=== PATIENT | male | born 1990 | race Caucasian/White ===

== ENCOUNTER 2024-03-31 09:16 | Outpatient (CLI) | payer OTHER | END 2024-03-31 09:17 | disposition home or self-care (01) | LOC: SCSMRI 09:16 | PROVIDERS: ATTEND Orthopaedic Surgery | DX: M87.851 Other osteonecrosis, right femur (principal); S73.101A Unspecified sprain of right hip, initial encounter ==

== ENCOUNTER 2024-04-16 11:44 | Outpatient (CLI) | payer OTHER ==
[2024-04-16 13:10] LABS: #Basophils Less than 0.03 10x3/uL (0.0-0.2); %Basophils 0.2 % (0.0-1.0); %Eosinophils 0.6 % (0.0-10.0); %Lymphocytes 31.7 % (21.0-51.0); %Monocytes 8.7 % (0.0-10.0); %Neutrophils 58.6 % (42.0-75.0); Hematocrit 47.6 % (42.0-52.0); Hemoglobin 16.7 g/dL (14.0-18.0); Mean Corpuscular HGB CONC 35.1 g/dL (32.0-36.0); Mean Corpuscular Hemoglobin 30.4 pg (27.0-31.0); Mean Corpuscular Volume 86.7 fL (78.0-98.0); Mean Platelet Volume 9.9 fL (7.4-10.4); Platelet Count 276 10x3/uL (130-400); RBC Distribution Width 12.4 % (11.5-14.5); Red Blood Cell (RBC) Count 5.49 mill/uL (4.70-6.10)
[2024-04-16 13:25] LABS: INR-International Normal Ratio 0.9
[2024-04-16 13:26] LABS: PTT 30.1 sec (22.9-36.1)
[2024-04-16 13:30] LABS: Anion Gap 14 mmol/L (10-20); BUN (Urea Nitrogen) 14 mg/dL (8.9-20.6); Calc. Creatinine Clearance 0 mL/min (70-130); Calcium 9.5 mg/dL (7.8-10.44); Carbon Dioxide 23 mmol/L (22-29); Chloride 106 mmol/L (98-107); Estimated GFR 127; Glucose 89 mg/dL (70-105); Sodium 139 mmol/L (136-145)
== END 2024-04-16 11:45 | disposition home or self-care (01) ==
LOC: LABBT 11:44
PROVIDERS: ATTEND Orthopaedic Surgery
DX: Z01.818 Encounter for other preprocedural examination (principal); M87.051 Idiopathic aseptic necrosis of right femur
CPT/HCPCS: 80048; 85025; 85610; 85730; 87081; 93005; 93010

== ENCOUNTER 2024-04-16 12:00 | Observation (INO) | payer OTHER ==
[2024-04-16 12:04] VITALS: BMI 25.7
[2024-04-19] MEDS ORDERED: CEFAZOLIN 2 GM VIAL ONE (12:48)
[2024-04-19] MEDS ORDERED: Midazolam HCl 2 mg/2 ml Vial ONE (12:48)
[2024-04-19] MEDS ORDERED: Tranexamic Acid 1,000 MG/10 ML VIAL ONE ×2 (12:53→15:19)
[2024-04-19] MEDS ORDERED: Famotidine/PF 20 mg/2ml Vial ONE (12:56)
[2024-04-19] MEDS ORDERED: Sterile Water 10 ML ONE (12:58)
[2024-04-19] MEDS ORDERED: Lidocaine 2% PF 5 ML VIAL ONE (13:01)
[2024-04-19] MEDS ORDERED: fentaNYL PF 100 MCG/2 ML SYRINGE ONE ×2 (13:01→15:28)
[2024-04-19] MEDS ORDERED: PROPOFOL 20 ML ONE (13:01)
[2024-04-19] MEDS ORDERED: Morphine 4 MG/ML VIAL SLOW IVP PRN (13:02)
[2024-04-19] MEDS ORDERED: Ondansetron ODT 4 MG TAB PO PRN (13:02)
[2024-04-19] MEDS ORDERED: Rocuronium Bromide 10 MG/ML (10ML VIAL) ONE (13:02)
[2024-04-19] MEDS ORDERED: Morphine 2 MG/ML VIAL SLOW IVP PRN (13:02)
[2024-04-19] MEDS ORDERED: Ondansetron PF 4 MG/2 ML Vial IVP PRN (13:02)
[2024-04-19] MEDS ORDERED: HYDROcodone/Acetaminophen 10/325 mg Tablet PO PRN (13:02)
[2024-04-19] MEDS ORDERED: Zolpidem Tartrate 5 MG TAB PO PRN (13:02)
[2024-04-19] MEDS ORDERED: Tranexamic Acid 1,000 MG in Sodium Chloride 0.9% 100 ML IVPB SCH (13:15)
[2024-04-19] MEDS ORDERED: Ondansetron PF 4 MG/2 ML Vial ONE (13:28)
[2024-04-19] MEDS ORDERED: Ketorolac Tromethamine 30 MG (1 mL) VIAL ONE (13:28)
[2024-04-19] MEDS ORDERED: Dexamethasone 4 mg/ml Vial ONE (13:28)
[2024-04-19] MEDS ORDERED: Dexmedetomidine 200 MCG/2 ML VIAL ONE (13:28)
[2024-04-19] MEDS ORDERED: SUGAMMADEX SODIUM 200 MG/2 ML VIAL ONE (13:30)
[2024-04-19] MEDS ORDERED: Metoprolol Tartrate 5 MG (5 mL) VIAL ONE (13:37)
[2024-04-19] MEDS ORDERED: fentaNYL 50 mcg/mL 1 mL Vial ONE ×3 (14:42→15:01)
[2024-04-19] MEDS ORDERED: HYDROmorphone 2 MG/ML VIAL SLOW IVP PRN (14:54)
[2024-04-19] MEDS ORDERED: Promethazine HCl 25 MG/ML VIAL IM PRN (14:54)
[2024-04-19] MEDS ORDERED: Ondansetron HCl/PF 4 MG/2 ML Vial IVP PRN (14:54)
[2024-04-19] MEDS ORDERED: Meperidine HCl/PF 25 MG/ML VIAL SLOW IVP PRN (14:54)
[2024-04-19] MEDS ORDERED: HYDROmorphone 0.5 MG/0.5 ML SYRINGE ONE (15:01)
[2024-04-19] MEDS ORDERED: Morphine 4 MG/ML VIAL ONE (15:39)
[2024-04-19] MEDS: HYDROcodone/Acetaminophen 10/325 mg Tablet PO PRN (16:41)
[2024-04-19] MEDS: Ketorolac Tromethamine 30 MG (1 mL) VIAL IVP SCH (17:18)
[2024-04-19] MEDS ORDERED: ALPRAZolam 1 MG TAB PO PRN (20:06)
[2024-04-19] MEDS: Aspirin 81 mg Enteric Coated Tablet PO SCH (20:37)
[2024-04-19] MEDS: CEFAZOLIN 2 GM in Sodium Chloride 0.9% 100 ML IVPB SCH (20:38)
[2024-04-19] MEDS: Lisinopril 10 MG TAB PO SCH (20:40)
[2024-04-20 15:13] VITALS: BP 124/74; TEMP 98.2
== END 2024-04-20 17:00 | disposition home or self-care (01) ==
LOC: SURG A 04-19 10:54 → INTOOBSV 04-19 10:54 → EDSTATUS 04-19 12:00 → SURG A 04-19 16:04
PROVIDERS: ADMIT Orthopaedic Surgery; ATTEND Orthopaedic Surgery
PROC: 0SR90JZ Replacement of Right Hip Joint with Synthetic Substitute, Open Approach (ICD-10-PCS; principal; 2024-04-20)
DX: M87.051 Idiopathic aseptic necrosis of right femur (principal); I10 Essential (primary) hypertension; F41.9 Anxiety disorder, unspecified; Z98.890 Other specified postprocedural states; Z79.899 Other long term (current) drug therapy
CPT/HCPCS: C1713; C1776; C1889; J1100; J1171; J1885; J2250; J2272; J2405; J2704; J3010; J3490